=== PATIENT | female | born 1935 | race Caucasian/White ===

== ENCOUNTER 2020-04-08 09:31 | Day surgery (SDC) | payer OTHER ==
[2020-04-03 09:57] VITALS: BMI 30.9
[2020-04-08 12:11] VITALS: TEMP 98.1
[2020-04-08 12:53] VITALS: BP 140/69; PULSE 79
== END 2020-04-08 12:30 | disposition home or self-care (01) ==
LOC: FECT 09:31
PROVIDERS: ATTEND Psychiatry & Neurology Psychiatry
PROC: GZB4ZZZ Other Electroconvulsive Therapy (ICD-10-PCS; principal; 2020-04-08 10:30)
DX: F33.2 Major depressive disorder, recurrent severe without psychotic features (principal)
CPT/HCPCS: 90870; 94760; C9803; U0003

== ENCOUNTER 2020-04-12 06:48 | Day surgery (SDC) | payer OTHER ==
[2020-04-08 12:51] VITALS: BMI 30.7
[2020-04-12 10:33] VITALS: TEMP 97.9
[2020-04-12 10:34] VITALS: BP 135/71; PULSE 82
== END 2020-04-12 10:15 | disposition home or self-care (01) ==
LOC: FECT 06:48
PROVIDERS: ATTEND Psychiatry & Neurology Psychiatry
PROC: GZB4ZZZ Other Electroconvulsive Therapy (ICD-10-PCS; principal; 2020-04-12 07:30)
DX: F32.9 Major depressive disorder, single episode, unspecified (principal)
CPT/HCPCS: 90870; 94760; C9803; U0003

== ENCOUNTER → 2020-04-15 | Day surgery (SDC) | payer OTHER ==
[2020-04-12 10:50] VITALS: BMI 30.7
[~2020-04-15] MED LIST: ACETAMINOPHEN 325 MG TABLET (FP) PO PRN; LACTATED RINGERS SOLUTION 1,000 ML IV SCH
[2020-04-15 12:44] VITALS: TEMP 97.8
[2020-04-15 13:13] VITALS: BP 155/62; PULSE 105
== END | disposition home or self-care (01) ==
LOC: FECT 10:26
PROVIDERS: ATTEND Psychiatry & Neurology Psychiatry
PROC: GZB4ZZZ Other Electroconvulsive Therapy (ICD-10-PCS; principal; 2020-04-15 11:30)
DX: F32.9 Major depressive disorder, single episode, unspecified (principal)
CPT/HCPCS: 90870; 94760; C9803; U0003

== ENCOUNTER 2020-04-18 06:09 | Day surgery (SDC) | payer OTHER ==
[2020-04-12 12:07] VITALS: BMI 30.7
[2020-04-18 09:17] VITALS: BP 147/69; PULSE 85; TEMP 97.8
== END 2020-04-18 09:10 | disposition home or self-care (01) ==
LOC: FECT 06:09
PROVIDERS: ATTEND Psychiatry & Neurology Psychiatry
PROC: GZB4ZZZ Other Electroconvulsive Therapy (ICD-10-PCS; principal; 2020-04-18 08:00)
DX: F32.9 Major depressive disorder, single episode, unspecified (principal)
CPT/HCPCS: 90870; 94760; C9803; U0003

== ENCOUNTER 2020-04-22 10:06 | Day surgery (SDC) | payer OTHER ==
[2020-04-19 12:24] VITALS: BMI 30.7
[2020-04-22 11:46] VITALS: TEMP 97.5
[2020-04-22 12:53] VITALS: BP 136/63; PULSE 88
== END 2020-04-22 12:50 | disposition home or self-care (01) ==
LOC: FECT 10:06
PROVIDERS: ATTEND Psychiatry & Neurology Psychiatry
PROC: GZB4ZZZ Other Electroconvulsive Therapy (ICD-10-PCS; principal; 2020-04-22 11:00)
DX: F32.9 Major depressive disorder, single episode, unspecified (principal)
CPT/HCPCS: 90870; 94760; C9803; U0003

== ENCOUNTER 2020-04-25 08:17 | Day surgery (SDC) | payer OTHER ==
[2020-04-22 16:24] VITALS: BMI 30.7
[2020-04-25] MEDS ORDERED: PROPOFOL 20 ML ONE (11:17)
[2020-04-25] MEDS ORDERED: SUCCINYLCHOLINE CHLORIDE 200 MG/10 ML SYRINGE ONE (11:18)
[2020-04-25 11:50] VITALS: TEMP 98.6
[2020-04-25 12:56] VITALS: BP 144/74; PULSE 84
== END 2020-04-25 12:35 | disposition home or self-care (01) ==
LOC: FECT 08:17
PROVIDERS: ATTEND Psychiatry & Neurology Psychiatry
PROC: GZB4ZZZ Other Electroconvulsive Therapy (ICD-10-PCS; principal; 2020-04-25 10:00)
DX: F32.9 Major depressive disorder, single episode, unspecified (principal)
CPT/HCPCS: 90870; 94760; C9803; U0003

== ENCOUNTER 2020-04-29 09:21 | Day surgery (SDC) | payer OTHER ==
[2020-04-29 10:03] VITALS: BMI 30.7
[2020-04-29 13:18] VITALS: BP 133/63; PULSE 64; TEMP 98
== END 2020-04-29 12:30 | disposition home or self-care (01) ==
LOC: FECT 09:21
PROVIDERS: ATTEND Psychiatry & Neurology Psychiatry
PROC: GZB4ZZZ Other Electroconvulsive Therapy (ICD-10-PCS; principal; 2020-04-29 10:30)
DX: F32.9 Major depressive disorder, single episode, unspecified (principal)
CPT/HCPCS: 90870; 94760; C9803; U0003

== ENCOUNTER 2020-05-02 07:14 | Day surgery (SDC) | payer OTHER ==
[2020-04-29 14:13] VITALS: BMI 30.7
[2020-05-02] MEDS ORDERED: KETAMINE HCL 500 MG/10 ML VIAL ONE (08:19)
[2020-05-02 11:12] VITALS: TEMP 98.1
[2020-05-02 11:16] VITALS: BP 142/79; PULSE 80
== END 2020-05-02 09:50 | disposition home or self-care (01) ==
LOC: FECT 07:14
PROVIDERS: ATTEND Psychiatry & Neurology Psychiatry
PROC: GZB4ZZZ Other Electroconvulsive Therapy (ICD-10-PCS; principal; 2020-05-02 09:00)
DX: F32.9 Major depressive disorder, single episode, unspecified (principal)
CPT/HCPCS: 90870; 94760; C9803; U0003

== ENCOUNTER 2020-05-06 08:07 | Day surgery (SDC) | payer OTHER ==
[2020-05-02 15:14] VITALS: BMI 30.7
[2020-05-06] MEDS ORDERED: KETAMINE HCL 500 MG/10 ML VIAL ONE (09:56)
[2020-05-06 11:06] VITALS: TEMP 98
[2020-05-06 11:12] VITALS: BP 142/65; PULSE 84
== END 2020-05-06 11:25 | disposition home or self-care (01) ==
LOC: FECT 08:07
PROVIDERS: ATTEND Psychiatry & Neurology Psychiatry
PROC: GZB4ZZZ Other Electroconvulsive Therapy (ICD-10-PCS; principal; 2020-05-06 10:00)
DX: F32.9 Major depressive disorder, single episode, unspecified (principal)
CPT/HCPCS: 90870; 94760; C9803; U0003

== ENCOUNTER 2020-05-09 06:33 | Day surgery (SDC) | payer OTHER ==
[2020-05-07 08:32] VITALS: BMI 30.7
[2020-05-09] MEDS ORDERED: KETAMINE HCL 500 MG/10 ML VIAL ONE (07:42)
[2020-05-09 09:44] VITALS: TEMP 98
[2020-05-09 09:50] VITALS: BP 145/67; PULSE 88
== END 2020-05-09 09:55 | disposition home or self-care (01) ==
LOC: FECT 06:33
PROVIDERS: ATTEND Psychiatry & Neurology Psychiatry
PROC: GZB4ZZZ Other Electroconvulsive Therapy (ICD-10-PCS; principal; 2020-05-09 10:00)
DX: F32.9 Major depressive disorder, single episode, unspecified (principal)
CPT/HCPCS: 90870; 94760; C9803; U0003

== ENCOUNTER 2020-05-23 07:21 | Day surgery (SDC) | payer OTHER ==
[2020-05-08 17:09] VITALS: BMI 28.4
[2020-05-23] MEDS ORDERED: KETAMINE HCL 500 MG/10 ML VIAL ONE (08:43)
[2020-05-23 09:12] VITALS: TEMP 98.7
[2020-05-23 10:01] VITALS: BP 148/69; PULSE 88
== END 2020-05-23 10:00 | disposition home or self-care (01) ==
LOC: FECT 07:21
PROVIDERS: ATTEND Psychiatry & Neurology Psychiatry
PROC: GZB4ZZZ Other Electroconvulsive Therapy (ICD-10-PCS; principal; 2020-05-23 09:00)
DX: F32.9 Major depressive disorder, single episode, unspecified (principal)
CPT/HCPCS: 90870; 94760

== ENCOUNTER 2020-06-06 08:57 | Day surgery (SDC) | payer OTHER ==
[2020-05-28 08:32] VITALS: BMI 28.4
[2020-06-06 09:20] VITALS: BP 155/82; PULSE 89; TEMP 97
== END 2020-06-06 09:30 | disposition home or self-care (01) ==
LOC: FECT 08:57
PROVIDERS: ATTEND Psychiatry & Neurology Psychiatry
PROC: GZB4ZZZ Other Electroconvulsive Therapy (ICD-10-PCS; principal; 2020-06-06)
DX: Z53.8 Procedure and treatment not carried out for other reasons (principal)

== ENCOUNTER 2020-07-04 10:28 | Day surgery (SDC) | payer OTHER ==
[2020-06-28 12:07] VITALS: BMI 28.4
[2020-07-04] MEDS ORDERED: KETAMINE HCL 500 MG/10 ML VIAL ONE (11:54)
[2020-07-04 13:50] VITALS: TEMP 97.7
[2020-07-04 13:56] VITALS: BP 148/74; PULSE 86
== END 2020-07-04 13:50 | disposition home or self-care (01) ==
LOC: FECT 10:28
PROVIDERS: ATTEND Psychiatry & Neurology Psychiatry
PROC: GZB4ZZZ Other Electroconvulsive Therapy (ICD-10-PCS; principal; 2020-07-04 10:45)
DX: F32.9 Major depressive disorder, single episode, unspecified (principal)
CPT/HCPCS: 90870; 94760

== ENCOUNTER 2020-08-22 07:02 | Day surgery (SDC) | payer OTHER ==
[2020-08-22 07:53] VITALS: BMI 28.4
[2020-08-22] MEDS ORDERED: KETAMINE HCL 500 MG/10 ML VIAL ONE (08:46)
[2020-08-22 09:57] VITALS: TEMP 98.2
[2020-08-22 10:09] VITALS: BP 144/77; PULSE 79
== END 2020-08-22 10:10 | disposition home or self-care (01) ==
LOC: FECT 07:02
PROVIDERS: ATTEND Psychiatry & Neurology Psychiatry
PROC: GZB4ZZZ Other Electroconvulsive Therapy (ICD-10-PCS; principal; 2020-08-22 08:30)
DX: F32.9 Major depressive disorder, single episode, unspecified (principal)
CPT/HCPCS: 90870; 94760

== ENCOUNTER 2020-08-30 06:30 | Day surgery (SDC) | payer OTHER ==
[2020-08-29 07:45] VITALS: BMI 28.4
[2020-08-30] MEDS ORDERED: KETAMINE HCL 500 MG/10 ML VIAL ONE (08:17)
[2020-08-30 09:31] VITALS: TEMP 97.8
[2020-08-30 09:59] VITALS: BP 143/83; PULSE 87
== END 2020-08-30 10:00 | disposition home or self-care (01) ==
LOC: FECT 06:30
PROVIDERS: ATTEND Psychiatry & Neurology Psychiatry
PROC: GZB4ZZZ Other Electroconvulsive Therapy (ICD-10-PCS; principal; 2020-08-30 08:30)
DX: F32.9 Major depressive disorder, single episode, unspecified (principal)
CPT/HCPCS: 90870; 94760

== ENCOUNTER 2020-09-05 06:40 | Day surgery (SDC) | payer OTHER ==
[2020-08-30 12:18] VITALS: BMI 28.4
[2020-09-05] MEDS ORDERED: KETAMINE HCL 500 MG/10 ML VIAL ONE (08:13)
[2020-09-05 09:20] VITALS: TEMP 98
[2020-09-05 09:53] VITALS: BP 133/66; PULSE 86
== END 2020-09-05 09:45 | disposition home or self-care (01) ==
LOC: FECT 06:40
PROVIDERS: ATTEND Psychiatry & Neurology Psychiatry
PROC: GZB4ZZZ Other Electroconvulsive Therapy (ICD-10-PCS; principal; 2020-09-05 08:30)
DX: F32.9 Major depressive disorder, single episode, unspecified (principal)
CPT/HCPCS: 90870; 94760

== ENCOUNTER 2020-09-13 06:04 | Day surgery (SDC) | payer OTHER ==
[2020-09-06 16:32] VITALS: BMI 28.4
[2020-09-13] MEDS ORDERED: KETAMINE HCL 500 MG/10 ML VIAL ONE (07:16)
[2020-09-13 08:27] VITALS: TEMP 97
[2020-09-13 08:57] VITALS: BP 132/74; PULSE 76
== END 2020-09-13 08:59 | disposition home or self-care (01) ==
LOC: FECT 06:04
PROVIDERS: ATTEND Psychiatry & Neurology Psychiatry
PROC: GZB4ZZZ Other Electroconvulsive Therapy (ICD-10-PCS; principal; 2020-09-13 07:30)
DX: F25.9 Schizoaffective disorder, unspecified (principal)
CPT/HCPCS: 90870; 94760

== ENCOUNTER → 2020-09-20 | Day surgery (SDC) | payer OTHER ==
[~2020-09-20] MED LIST changes: -ACETAMINOPHEN 325 MG TABLET (FP) PO PRN; +KETAMINE HCL 500 MG/10 ML VIAL ONE; -LACTATED RINGERS SOLUTION 1,000 ML IV SCH
[2020-09-20 08:50] VITALS: BMI 29.1
[2020-09-20 09:53] VITALS: TEMP 97.8
[2020-09-20 10:49] VITALS: BP 165/75; PULSE 84
== END | disposition home or self-care (01) ==
LOC: FECT 08:18
PROVIDERS: ATTEND Psychiatry & Neurology Psychiatry
PROC: GZB4ZZZ Other Electroconvulsive Therapy (ICD-10-PCS; principal; 2020-09-20 08:30)
DX: F32.9 Major depressive disorder, single episode, unspecified (principal)
CPT/HCPCS: 90870; 94760

== ENCOUNTER 2020-09-27 09:18 | Day surgery (SDC) | payer OTHER ==
[2020-09-09 15:47] VITALS: BMI 28.4
[2020-09-27 10:12] VITALS: TEMP 97.8
[2020-09-27] MEDS ORDERED: KETAMINE HCL 500 MG/10 ML VIAL ONE (10:36)
[2020-09-27 12:43] LABS: BASO % 2.4 % (0-2.0); EOS % 1.8 % (0-4.5); HEMATOCRIT 41.6 % (32.4-45.2); HEMOGLOBIN 14.3 GM/dl (10.7-15.3); LYMPH % 20.8 % (8-40); MCH 33.2 pg (25.7-33.7); MCHC 34.5 g/dl (32.0-36.0); MEAN CELL VOLUME 96.2 fl (80-96); MEAN PLT VOLUME 9.4 fl (7.5-11.1); PLATELET COUNT 185 10^3/uL (134-434); RBC 4.32 M/mm3 (3.60-5.2); RDW 12.9 % (11.6-15.6); WHITE BLOOD COUNT 6.4 K/mm3 (4.0-10.8)
[2020-09-27 12:49] VITALS: BP 154/70; PULSE 77
[2020-09-27 12:57] LABS: ALBUMIN 3.5 g/dl (3.4-5.0); BILIRUBIN,TOTAL 0.8 mg/dl (0.2-1); CALCIUM 9.2 mg/dl (8.5-10); CREATININE 0.5 mg/dl (0.55-1.3); MAGNESIUM 1.9 mg/dL (1.8-2.4); TOT PROT 6.2 g/dl (6.4-8.2)
== END 2020-09-27 12:40 | disposition home or self-care (01) ==
LOC: FECT 09:18
PROVIDERS: ATTEND Psychiatry & Neurology Psychiatry
PROC: GZB4ZZZ Other Electroconvulsive Therapy (ICD-10-PCS; principal; 2020-09-27 10:00)
DX: F32.9 Major depressive disorder, single episode, unspecified (principal)
CPT/HCPCS: 36415; 80053; 83735; 85025; 90870; 93005; 94760

== ENCOUNTER 2020-10-04 07:01 | Day surgery (SDC) | payer OTHER ==
[2020-10-04 07:36] VITALS: BMI 28.3
[2020-10-04] MEDS ORDERED: PROPOFOL 20 ML ONE (08:53)
[2020-10-04] MEDS ORDERED: KETAMINE HCL 500 MG/10 ML VIAL ONE (08:54)
[2020-10-04 10:12] VITALS: TEMP 97.9
[2020-10-04 10:34] VITALS: BP 138/74; PULSE 67
== END 2020-10-04 10:34 | disposition home or self-care (01) ==
LOC: FECT 07:01
PROVIDERS: ATTEND Psychiatry & Neurology Psychiatry
PROC: GZB4ZZZ Other Electroconvulsive Therapy (ICD-10-PCS; principal; 2020-10-04 09:00)
DX: F32.9 Major depressive disorder, single episode, unspecified (principal)
CPT/HCPCS: 90870; 94760

== ENCOUNTER 2020-10-11 09:14 | Day surgery (SDC) | payer OTHER ==
[2020-10-08 13:02] VITALS: BMI 28.3
[2020-10-11 11:39] VITALS: PULSE 83; TEMP 98
[2020-10-11 12:39] VITALS: BP 139/64
== END 2020-10-11 11:45 | disposition home or self-care (01) ==
LOC: FECT 09:14
PROVIDERS: ATTEND Psychiatry & Neurology Psychiatry
PROC: GZB4ZZZ Other Electroconvulsive Therapy (ICD-10-PCS; principal; 2020-10-11 10:00)
DX: F32.9 Major depressive disorder, single episode, unspecified (principal)
CPT/HCPCS: 90870; 94760

== ENCOUNTER 2020-10-18 06:41 | Day surgery (SDC) | payer OTHER ==
[2020-10-11 16:10] VITALS: BMI 25.1
[2020-10-18] MEDS ORDERED: KETAMINE HCL 500 MG/10 ML VIAL ONE (09:01)
[2020-10-18 10:34] VITALS: TEMP 98
[2020-10-18 10:40] VITALS: BP 144/64; PULSE 78
== END 2020-10-18 10:40 | disposition home or self-care (01) ==
LOC: FECT 06:41
PROVIDERS: ATTEND Psychiatry & Neurology Psychiatry
PROC: GZB4ZZZ Other Electroconvulsive Therapy (ICD-10-PCS; principal; 2020-10-18 08:00)
DX: F32.9 Major depressive disorder, single episode, unspecified (principal)
CPT/HCPCS: 90870; 94760

== ENCOUNTER 2020-10-25 09:06 | Day surgery (SDC) | payer OTHER ==
[2020-10-22 07:56] VITALS: BMI 25.1
[2020-10-25 09:44] VITALS: TEMP 97.8
[2020-10-25] MEDS ORDERED: KETAMINE HCL 500 MG/10 ML VIAL ONE (11:08)
[2020-10-25 13:14] VITALS: BP 139/79; PULSE 76
== END 2020-10-25 12:40 | disposition home or self-care (01) ==
LOC: FECT 09:06
PROVIDERS: ATTEND Psychiatry & Neurology Psychiatry
PROC: GZB4ZZZ Other Electroconvulsive Therapy (ICD-10-PCS; principal; 2020-10-25 11:00)
DX: F33.2 Major depressive disorder, recurrent severe without psychotic features (principal)
CPT/HCPCS: 90870; 94760

== ENCOUNTER 2020-11-01 06:48 | Day surgery (SDC) | payer OTHER ==
[2020-10-29 12:40] VITALS: BMI 25.1
[2020-11-01] MEDS ORDERED: PROPOFOL 20 ML ONE ×2 (07:09)
[2020-11-01] MEDS ORDERED: KETAMINE HCL 200 MG/20 ML VIAL ONE (07:09)
[2020-11-01] MEDS ORDERED: SUCCINYLCHOLINE CHLORIDE 200 MG/10 ML SYRINGE ONE ×2 (07:09)
[2020-11-01] MEDS ORDERED: GLYCOPYRROLATE 0.2 MG/1 ML VIAL ONE (07:12)
[2020-11-01] MEDS ORDERED: LIDOCAINE HCL/PF 2% SDV 5ML VIAL ONE (07:12)
[2020-11-01] MEDS ORDERED: DEXMEDETOMIDINE HCL 200 MCG/2 ML IVPB ONE (08:55)
[2020-11-01 10:13] VITALS: TEMP 97.8
[2020-11-01 10:42] VITALS: BP 134/76; PULSE 90
== END 2020-11-01 09:35 | disposition home or self-care (01) ==
LOC: FECT 06:48
PROVIDERS: ATTEND Psychiatry & Neurology Psychiatry
PROC: GZB4ZZZ Other Electroconvulsive Therapy (ICD-10-PCS; principal; 2020-11-01 07:30)
DX: F32.9 Major depressive disorder, single episode, unspecified (principal)
CPT/HCPCS: 90870; 94760

== ENCOUNTER 2020-11-08 07:29 | Day surgery (SDC) | payer OTHER ==
[2020-11-04 11:15] VITALS: BMI 25.1
[2020-11-08] MEDS ORDERED: KETAMINE HCL 500 MG/10 ML VIAL ONE (09:44)
[2020-11-08 11:08] VITALS: BP 144/74; PULSE 95; TEMP 97
== END 2020-11-08 11:05 | disposition home or self-care (01) ==
LOC: FECT 07:29
PROVIDERS: ATTEND Psychiatry & Neurology Psychiatry
PROC: GZB4ZZZ Other Electroconvulsive Therapy (ICD-10-PCS; principal; 2020-11-08 09:30)
DX: F32.9 Major depressive disorder, single episode, unspecified (principal)
CPT/HCPCS: 90870; 94760

== ENCOUNTER 2020-11-14 07:39 | Day surgery (SDC) | payer OTHER ==
[2020-11-08 16:20] VITALS: BMI 25.1
[2020-11-14] MEDS ORDERED: KETAMINE HCL 500 MG/10 ML VIAL ONE (09:01)
[2020-11-14] MEDS ORDERED: PROPOFOL 20 ML ONE (09:23)
[2020-11-14 10:07] VITALS: TEMP 98.2
[2020-11-14 10:19] VITALS: BP 142/94; PULSE 80
== END 2020-11-14 10:25 | disposition home or self-care (01) ==
LOC: FECT 07:39
PROVIDERS: ATTEND Psychiatry & Neurology Psychiatry
PROC: GZB4ZZZ Other Electroconvulsive Therapy (ICD-10-PCS; principal; 2020-11-14 09:30)
DX: F32.9 Major depressive disorder, single episode, unspecified (principal)
CPT/HCPCS: 90870; 94760

== ENCOUNTER 2020-11-21 08:15 | Day surgery (SDC) | payer OTHER ==
[2020-11-19 07:28] VITALS: BMI 25.1
[2020-11-21 08:51] VITALS: TEMP 97.1
[2020-11-21] MEDS ORDERED: SUCCINYLCHOLINE CHLORIDE 200 MG/10 ML SYRINGE ONE (09:59)
[2020-11-21] MEDS ORDERED: PROPOFOL 20 ML ONE (09:59)
[2020-11-21] MEDS ORDERED: KETAMINE HCL 500 MG/10 ML VIAL ONE (10:00)
[2020-11-21 11:20] VITALS: BP 168/61; PULSE 71
== END 2020-11-21 11:25 | disposition home or self-care (01) ==
LOC: FECT 08:15
PROVIDERS: ATTEND Psychiatry & Neurology Psychiatry
PROC: GZB4ZZZ Other Electroconvulsive Therapy (ICD-10-PCS; principal; 2020-11-21 10:00)
DX: F32.9 Major depressive disorder, single episode, unspecified (principal)
CPT/HCPCS: 90870; 94760

== ENCOUNTER 2020-11-28 08:06 | Day surgery (SDC) | payer OTHER ==
[2020-11-26 08:34] VITALS: BMI 25.1
[2020-11-28] MEDS ORDERED: KETAMINE HCL 500 MG/10 ML VIAL ONE (08:43)
[2020-11-28 09:43] VITALS: TEMP 97.1
[2020-11-28 10:07] VITALS: BP 134/62; PULSE 89
== END 2020-11-28 10:10 | disposition home or self-care (01) ==
LOC: FECT 08:06
PROVIDERS: ATTEND Psychiatry & Neurology Psychiatry
PROC: GZB4ZZZ Other Electroconvulsive Therapy (ICD-10-PCS; principal; 2020-11-28 10:00)
DX: F32.9 Major depressive disorder, single episode, unspecified (principal)
CPT/HCPCS: 90870; 94760

== ENCOUNTER 2020-12-20 07:01 | Day surgery (SDC) | payer OTHER ==
[2020-12-02 10:27] VITALS: BMI 25.1
[2020-12-20 07:48] VITALS: TEMP 98.4
[2020-12-20] MEDS ORDERED: KETAMINE HCL 500 MG/10 ML VIAL ONE (08:43)
[2020-12-20 12:34] VITALS: BP 131/61; PULSE 86
== END 2020-12-20 10:50 | disposition home or self-care (01) ==
LOC: FECT 07:01
PROVIDERS: ATTEND Psychiatry & Neurology Psychiatry
PROC: GZB4ZZZ Other Electroconvulsive Therapy (ICD-10-PCS; principal; 2020-12-20 09:00)
DX: F32.9 Major depressive disorder, single episode, unspecified (principal)
CPT/HCPCS: 90870; 94760

== ENCOUNTER 2021-01-02 10:23 | Day surgery (SDC) | payer OTHER ==
[2020-12-31 12:55] VITALS: BMI 25.1
[2021-01-02 11:07] VITALS: TEMP 97.7
[2021-01-02] MEDS ORDERED: KETAMINE HCL 500 MG/10 ML VIAL ONE (11:39)
[2021-01-02 13:01] VITALS: BP 135/66; PULSE 77
== END 2021-01-02 13:05 | disposition home or self-care (01) ==
LOC: FECT 10:23
PROVIDERS: ATTEND Psychiatry & Neurology Psychiatry
PROC: GZB4ZZZ Other Electroconvulsive Therapy (ICD-10-PCS; principal; 2021-01-02 11:00)
DX: F32.9 Major depressive disorder, single episode, unspecified (principal)
CPT/HCPCS: 90870; 94760

== ENCOUNTER 2021-01-16 07:53 | Day surgery (SDC) | payer OTHER ==
[2021-01-16 08:35] VITALS: BMI 25.1
[2021-01-16] MEDS ORDERED: KETAMINE HCL 500 MG/10 ML VIAL ONE (09:20)
[2021-01-16 10:36] VITALS: TEMP 97.8
[2021-01-16 10:43] VITALS: BP 140/70; PULSE 87
== END 2021-01-16 10:45 | disposition home or self-care (01) ==
LOC: FECT 07:53
PROVIDERS: ATTEND Psychiatry & Neurology Psychiatry
PROC: GZB4ZZZ Other Electroconvulsive Therapy (ICD-10-PCS; principal; 2021-01-16 09:30)
DX: F32.9 Major depressive disorder, single episode, unspecified (principal)
CPT/HCPCS: 90870; 94760

== ENCOUNTER 2021-01-30 09:28 | Day surgery (SDC) | payer OTHER ==
[2021-01-29 08:46] VITALS: BMI 25.1
[2021-01-30] MEDS ORDERED: KETAMINE HCL 500 MG/10 ML VIAL ONE (11:23)
[2021-01-30 12:02] VITALS: TEMP 97.3
[2021-01-30 12:58] VITALS: BP 132/80; PULSE 76
== END 2021-01-30 12:55 | disposition home or self-care (01) ==
LOC: FECT 09:28
PROVIDERS: ATTEND Psychiatry & Neurology Psychiatry
PROC: GZB4ZZZ Other Electroconvulsive Therapy (ICD-10-PCS; principal; 2021-01-30 11:00)
DX: F25.9 Schizoaffective disorder, unspecified (principal)
CPT/HCPCS: 90870; 94760

== ENCOUNTER 2021-02-17 11:40 | Day surgery (SDC) | payer OTHER ==
[2021-02-17 12:14] VITALS: BMI 25.6
[2021-02-17] MEDS ORDERED: KETAMINE HCL 500 MG/10 ML VIAL ONE (12:55)
[2021-02-17 15:45] VITALS: TEMP 98
[2021-02-17 15:47] VITALS: BP 158/64; PULSE 80
== END 2021-02-17 14:15 | disposition home or self-care (01) ==
LOC: FECT 11:40
PROVIDERS: ATTEND Psychiatry & Neurology Psychiatry
PROC: GZB4ZZZ Other Electroconvulsive Therapy (ICD-10-PCS; principal; 2021-02-17 12:30)
DX: F25.9 Schizoaffective disorder, unspecified (principal)
CPT/HCPCS: 90870; 94760

== ENCOUNTER 2021-03-06 09:05 | Day surgery (SDC) | payer OTHER ==
[2021-02-20 11:16] VITALS: BMI 25.6
[2021-03-06] MEDS ORDERED: KETAMINE HCL 500 MG/10 ML VIAL ONE (10:10)
[2021-03-06 10:47] VITALS: TEMP 98.6
[2021-03-06 11:57] VITALS: BP 141/61; PULSE 83
== END 2021-03-06 11:40 | disposition home or self-care (01) ==
LOC: FECT 09:05
PROVIDERS: ATTEND Psychiatry & Neurology Psychiatry
PROC: GZB4ZZZ Other Electroconvulsive Therapy (ICD-10-PCS; principal; 2021-03-06 10:00)
DX: F25.9 Schizoaffective disorder, unspecified (principal)
CPT/HCPCS: 90870; 94760

== ENCOUNTER 2021-03-20 10:13 | Day surgery (SDC) | payer OTHER ==
[2021-03-14 08:22] VITALS: BMI 25.6
[2021-03-20] MEDS ORDERED: KETAMINE HCL 500 MG/10 ML VIAL ONE (11:22)
[2021-03-20 11:36] LABS: ALBUMIN 3.6 g/dl (3.4-5.0); BILIRUBIN,TOTAL 1.2 mg/dl (0.2-1); CALCIUM 9.6 mg/dl (8.5-10); CREATININE 0.6 mg/dl (0.55-1.3); TOT PROT 6.7 g/dl (6.4-8.2)
[2021-03-20 12:17] VITALS: TEMP 97.8
[2021-03-20 12:29] LABS: HEMATOCRIT 41.1 % (32.4-45.2); MCH 32.8 pg (25.7-33.7); MCHC 34.1 g/dl (32.0-36.0); MEAN CELL VOLUME 96.1 fl (80-96); MEAN PLT VOLUME 9.2 fl (7.5-11.1); PLATELET COUNT 198 10^3/uL (134-434); RBC 4.28 M/mm3 (3.60-5.2); RDW 13.9 % (11.6-15.6); WHITE BLOOD COUNT 6.6 K/mm3 (4.0-10.0)
[2021-03-20 12:50] VITALS: BP 124/67; PULSE 84
== END 2021-03-20 13:05 | disposition home or self-care (01) ==
LOC: FECT 10:13
PROVIDERS: ATTEND Psychiatry & Neurology Psychiatry
PROC: GZB4ZZZ Other Electroconvulsive Therapy (ICD-10-PCS; principal; 2021-03-20 10:30)
DX: F25.9 Schizoaffective disorder, unspecified (principal)
CPT/HCPCS: 36415; 80053; 85027; 90870; 93005; 93010; 94760

== ENCOUNTER 2021-04-03 10:13 | Day surgery (SDC) | payer OTHER ==
[2021-04-01 07:58] VITALS: BMI 25.6
[2021-04-03] MEDS ORDERED: KETAMINE HCL 500 MG/10 ML VIAL ONE (11:54)
[2021-04-03 12:20] VITALS: TEMP 98.6
[2021-04-03 12:43] VITALS: BP 140/84; PULSE 87
== END 2021-04-03 13:00 | disposition home or self-care (01) ==
LOC: FECT 10:13
PROVIDERS: ATTEND Psychiatry & Neurology Psychiatry
PROC: GZB4ZZZ Other Electroconvulsive Therapy (ICD-10-PCS; principal; 2021-04-03 11:30)
DX: F25.9 Schizoaffective disorder, unspecified (principal)
CPT/HCPCS: 90870; 94760

== ENCOUNTER 2021-04-17 09:30 | Day surgery (SDC) | payer OTHER ==
[2021-04-11 17:50] VITALS: BMI 25.6
[2021-04-17] MEDS ORDERED: PROPOFOL 20 ML ONE (11:33)
[2021-04-17] MEDS ORDERED: ACETAMINOPHEN 325 MG TABLET (FP) PO PRN (12:02)
[2021-04-17 12:19] VITALS: TEMP 97.3
[2021-04-17 13:14] VITALS: BP 151/76; PULSE 88
== END 2021-04-17 13:00 | disposition home or self-care (01) ==
LOC: FECT 09:30
PROVIDERS: ATTEND Psychiatry & Neurology Psychiatry
PROC: GZB4ZZZ Other Electroconvulsive Therapy (ICD-10-PCS; principal; 2021-04-17 11:00)
DX: F25.9 Schizoaffective disorder, unspecified (principal)
CPT/HCPCS: 90870; 94760

== ENCOUNTER 2021-05-01 10:02 | Day surgery (SDC) | payer OTHER ==
[2021-05-01 10:36] VITALS: BMI 25.9
[2021-05-01] MEDS ORDERED: KETAMINE HCL 500 MG/10 ML VIAL ONE (11:26)
[2021-05-01 12:51] VITALS: TEMP 98.4
[2021-05-01 12:54] VITALS: BP 146/69; PULSE 89
== END 2021-05-01 12:54 | disposition home or self-care (01) ==
LOC: FECT 10:02
PROVIDERS: ATTEND Psychiatry & Neurology Psychiatry
PROC: GZB4ZZZ Other Electroconvulsive Therapy (ICD-10-PCS; principal; 2021-05-01 11:32)
DX: F20.9 Schizophrenia, unspecified (principal)
CPT/HCPCS: 90870; 94760

== ENCOUNTER 2021-05-15 07:15 | Day surgery (SDC) | payer OTHER ==
[2021-05-13 09:52] VITALS: BMI 25.9
[2021-05-15 09:16] VITALS: TEMP 98.4
[2021-05-15 10:20] VITALS: BP 139/60; PULSE 76
== END 2021-05-15 10:10 | disposition home or self-care (01) ==
LOC: FECT 07:15
PROVIDERS: ATTEND Psychiatry & Neurology Psychiatry
PROC: GZB4ZZZ Other Electroconvulsive Therapy (ICD-10-PCS; principal; 2021-05-15 08:51)
DX: F25.9 Schizoaffective disorder, unspecified (principal)
CPT/HCPCS: 90870; 94760

== ENCOUNTER 2021-05-29 08:30 | Day surgery (SDC) | payer OTHER ==
[2021-05-26 07:35] VITALS: BMI 25.9
[2021-05-29] MEDS ORDERED: KETAMINE HCL 500 MG/10 ML VIAL ONE (09:33)
[2021-05-29 11:52] VITALS: BP 142/58; PULSE 75; TEMP 97.8
== END 2021-05-29 11:10 | disposition home or self-care (01) ==
LOC: FECT 08:30
PROVIDERS: ATTEND Psychiatry & Neurology Psychiatry
PROC: GZB4ZZZ Other Electroconvulsive Therapy (ICD-10-PCS; principal; 2021-05-29 09:51)
DX: F20.9 Schizophrenia, unspecified (principal)
CPT/HCPCS: 90870; 94760

== ENCOUNTER 2021-06-12 09:29 | Day surgery (SDC) | payer OTHER ==
[2021-06-05 14:46] VITALS: BMI 25.9
[2021-06-12] MEDS ORDERED: KETAMINE HCL 500 MG/10 ML VIAL ONE (10:59)
[2021-06-12 12:18] VITALS: TEMP 97.3
[2021-06-12 12:40] VITALS: BP 144/61; PULSE 86
== END 2021-06-12 12:40 | disposition home or self-care (01) ==
LOC: FECT 09:29
PROVIDERS: ATTEND Psychiatry & Neurology Psychiatry
PROC: GZB4ZZZ Other Electroconvulsive Therapy (ICD-10-PCS; principal; 2021-06-12 11:20)
DX: F25.9 Schizoaffective disorder, unspecified (principal)
CPT/HCPCS: 90870; 94760

== ENCOUNTER 2021-07-31 08:36 | Day surgery (SDC) | payer OTHER ==
[2021-06-17 07:53] VITALS: BMI 25.9
[2021-07-31 10:48] VITALS: TEMP 98
[2021-07-31 11:06] VITALS: BP 149/58; PULSE 77
== END 2021-07-31 11:10 | disposition home or self-care (01) ==
LOC: FECT 08:36
PROVIDERS: ATTEND Psychiatry & Neurology Psychiatry
PROC: GZB4ZZZ Other Electroconvulsive Therapy (ICD-10-PCS; principal; 2021-07-31 09:54)
DX: F25.9 Schizoaffective disorder, unspecified (principal)
CPT/HCPCS: 90870; 94760

== ENCOUNTER 2021-08-15 07:54 | Day surgery (SDC) | payer OTHER ==
[2021-08-05 11:34] VITALS: BMI 25.9
[2021-08-15] MEDS ORDERED: KETAMINE HCL 500 MG/10 ML VIAL ONE (08:48)
[2021-08-15 10:00] VITALS: TEMP 98.2
[2021-08-15 10:12] VITALS: BP 159/66; PULSE 76
== END 2021-08-15 10:24 | disposition home or self-care (01) ==
LOC: FECT 07:54
PROVIDERS: ATTEND Psychiatry & Neurology Psychiatry
PROC: GZB4ZZZ Other Electroconvulsive Therapy (ICD-10-PCS; principal; 2021-08-15 09:05)
DX: F25.1 Schizoaffective disorder, depressive type (principal)
CPT/HCPCS: 90870; 94760

== ENCOUNTER 2021-09-05 07:04 | Day surgery (SDC) | payer OTHER ==
[2021-09-02 14:09] VITALS: BMI 25.9
[2021-09-05] MEDS ORDERED: KETAMINE HCL 500 MG/10 ML VIAL ONE (08:27)
[2021-09-05 10:09] VITALS: PULSE 85; TEMP 98.7
[2021-09-05 10:27] VITALS: BP 149/68
[2021-09-05 12:29] VITALS: RESP 17
== END 2021-09-05 10:05 | disposition home or self-care (01) ==
LOC: FECT 07:04
PROVIDERS: ATTEND Psychiatry & Neurology Psychiatry
PROC: GZB4ZZZ Other Electroconvulsive Therapy (ICD-10-PCS; principal; 2021-09-05 08:38)
DX: F25.1 Schizoaffective disorder, depressive type (principal)
CPT/HCPCS: 90870; 94760

== ENCOUNTER 2021-09-18 08:24 | Day surgery (SDC) | payer OTHER ==
[2021-09-15 12:28] VITALS: BMI 25.9
[2021-09-18] MEDS ORDERED: KETAMINE HCL 500 MG/10 ML VIAL ONE (09:50)
[2021-09-18 11:09] VITALS: RESP 18; TEMP 97.2
[2021-09-18 11:30] VITALS: BP 160/65; PULSE 82
== END 2021-09-18 11:38 | disposition home or self-care (01) ==
LOC: FECT 08:24
PROVIDERS: ATTEND Psychiatry & Neurology Psychiatry
PROC: GZB4ZZZ Other Electroconvulsive Therapy (ICD-10-PCS; principal; 2021-09-18 10:11)
DX: F25.1 Schizoaffective disorder, depressive type (principal)
CPT/HCPCS: 90870; 94760

== ENCOUNTER 2021-10-02 08:18 | Day surgery (SDC) | payer OTHER ==
[2021-09-23 13:57] VITALS: BMI 25.9
[2021-10-02] MEDS ORDERED: KETAMINE HCL 500 MG/10 ML VIAL ONE (10:15)
[2021-10-02 12:16] VITALS: BP 142/67; PULSE 82; RESP 20; TEMP 98.1
== END 2021-10-02 11:55 | disposition home or self-care (01) ==
LOC: FECT 08:18
PROVIDERS: ATTEND Psychiatry & Neurology Psychiatry
PROC: GZB4ZZZ Other Electroconvulsive Therapy (ICD-10-PCS; principal; 2021-10-02 10:36)
DX: F25.9 Schizoaffective disorder, unspecified (principal)
CPT/HCPCS: 90870; 94760

== ENCOUNTER 2021-10-23 09:01 | Day surgery (SDC) | payer OTHER ==
[2021-10-13 14:26] VITALS: BMI 25.9
[2021-10-23 11:34] VITALS: TEMP 97.5
[2021-10-23 11:51] VITALS: BP 160/60; PULSE 92; RESP 18
== END 2021-10-23 11:57 | disposition home or self-care (01) ==
LOC: FECT 09:01
PROVIDERS: ATTEND Psychiatry & Neurology Psychiatry
PROC: GZB4ZZZ Other Electroconvulsive Therapy (ICD-10-PCS; principal; 2021-10-23 10:51)
DX: F20.9 Schizophrenia, unspecified (principal)
CPT/HCPCS: 90870; 94760

== ENCOUNTER 2021-11-03 07:42 | Day surgery (SDC) | payer OTHER ==
[2021-11-03 08:26] VITALS: BMI 25.9
[2021-11-03] MEDS ORDERED: KETAMINE HCL 500 MG/10 ML VIAL ONE (09:24)
[2021-11-03 10:00] VITALS: TEMP 98.6
[2021-11-03 13:43] VITALS: RESP 18
[2021-11-03 13:44] VITALS: BP 141/78; PULSE 86
== END 2021-11-03 11:30 | disposition home or self-care (01) ==
LOC: FECT 07:42
PROVIDERS: ATTEND Psychiatry & Neurology Psychiatry
PROC: GZB4ZZZ Other Electroconvulsive Therapy (ICD-10-PCS; principal; 2021-11-03 09:40)
DX: F25.1 Schizoaffective disorder, depressive type (principal)
CPT/HCPCS: 90870; 94760

== ENCOUNTER 2021-11-20 08:20 | Day surgery (SDC) | payer OTHER ==
[2021-11-20 09:14] VITALS: BMI 25.9
[2021-11-20 11:32] VITALS: RESP 18; TEMP 98
[2021-11-20 11:46] VITALS: BP 139/60; PULSE 71
== END 2021-11-20 11:50 | disposition home or self-care (01) ==
LOC: FECT 08:20
PROVIDERS: ATTEND Psychiatry & Neurology Psychiatry
PROC: GZB4ZZZ Other Electroconvulsive Therapy (ICD-10-PCS; principal; 2021-11-20 10:26)
DX: F20.9 Schizophrenia, unspecified (principal)
CPT/HCPCS: 90870; 94760

== ENCOUNTER 2021-12-04 09:19 | Day surgery (SDC) | payer OTHER ==
[2021-11-26 08:48] VITALS: BMI 25.9
[2021-12-04] MEDS ORDERED: KETAMINE HCL 500 MG/10 ML VIAL ONE (10:22)
[2021-12-04 11:28] VITALS: RESP 18; TEMP 97.4
[2021-12-04 12:01] VITALS: BP 150/60; PULSE 80
== END 2021-12-04 12:00 | disposition home or self-care (01) ==
LOC: FECT 09:19
PROVIDERS: ATTEND Psychiatry & Neurology Psychiatry
PROC: GZB4ZZZ Other Electroconvulsive Therapy (ICD-10-PCS; principal; 2021-12-04 10:38)
DX: F25.9 Schizoaffective disorder, unspecified (principal)
CPT/HCPCS: 90870; 94760

== ENCOUNTER 2021-12-18 09:01 | Day surgery (SDC) | payer OTHER ==
[2021-12-18 09:40] VITALS: BMI 25.9
[2021-12-18 10:00] VITALS: TEMP 97.8
[2021-12-18] MEDS ORDERED: KETAMINE HCL 500 MG/10 ML VIAL ONE (10:19)
[2021-12-18 12:04] VITALS: BP 126/57; PULSE 89; RESP 18
== END 2021-12-18 11:40 | disposition home or self-care (01) ==
LOC: FECT 09:01
PROVIDERS: ATTEND Psychiatry & Neurology Psychiatry
PROC: GZB4ZZZ Other Electroconvulsive Therapy (ICD-10-PCS; principal; 2021-12-18 10:21)
DX: F25.9 Schizoaffective disorder, unspecified (principal)
CPT/HCPCS: 90870; 94760

== ENCOUNTER 2022-01-01 10:04 | Day surgery (SDC) | payer OTHER ==
[2021-12-30 14:56] VITALS: BMI 25.9
[2022-01-01 10:36] VITALS: TEMP 98
[2022-01-01] MEDS ORDERED: KETAMINE HCL 500 MG/10 ML VIAL ONE (12:37)
[2022-01-01 14:12] VITALS: BP 140/66; PULSE 77; RESP 18
== END 2022-01-01 14:10 | disposition home or self-care (01) ==
LOC: FECT 10:04
PROVIDERS: ATTEND Psychiatry & Neurology Psychiatry
PROC: GZB4ZZZ Other Electroconvulsive Therapy (ICD-10-PCS; principal; 2022-01-01 12:49)
DX: F32.A Depression, unspecified (principal)
CPT/HCPCS: 90870; 94760

== ENCOUNTER 2022-01-19 08:08 | Day surgery (SDC) | payer OTHER ==
[2022-01-13 14:59] VITALS: BMI 25.9
[2022-01-19] MEDS ORDERED: KETAMINE HCL 500 MG/10 ML VIAL ONE (09:23)
[2022-01-19 10:48] VITALS: BP 122/55; PULSE 70; TEMP 97.8
[2022-01-19 10:54] VITALS: RESP 18
== END 2022-01-19 11:16 | disposition home or self-care (01) ==
LOC: FECT 08:08
PROVIDERS: ATTEND Psychiatry & Neurology Psychiatry
PROC: GZB4ZZZ Other Electroconvulsive Therapy (ICD-10-PCS; principal; 2022-01-19 09:33)
DX: F25.1 Schizoaffective disorder, depressive type (principal)
CPT/HCPCS: 90870; 94760

== ENCOUNTER → 2022-02-17 | Day surgery (SDC) | payer OTHER ==
[2022-02-06 12:25] VITALS: BMI 25.9
[~2022-02-17] MED LIST changes: +LACTATED RINGERS SOLUTION 1,000 ML IV SCH; +ONDANSETRON 4 MG/2 ML VIAL IVPUSH PRN; +PROPOFOL 20 ML ONE; +SUCCINYLCHOLINE CHLORIDE 200 MG/10 ML SYRINGE ONE
[2022-02-17 10:13] VITALS: TEMP 97.7
[2022-02-17 11:33] VITALS: RESP 18
[2022-02-17 11:34] VITALS: BP 141/59; PULSE 88
== END | disposition home or self-care (01) ==
LOC: FECT 07:27
PROVIDERS: ATTEND Psychiatry & Neurology Psychiatry
PROC: GZB4ZZZ Other Electroconvulsive Therapy (ICD-10-PCS; principal; 2022-02-17 09:47)
DX: F20.9 Schizophrenia, unspecified (principal)
CPT/HCPCS: 90870; 94760

== ENCOUNTER 2022-03-03 07:28 | Day surgery (SDC) | payer OTHER ==
[2022-02-27 14:33] VITALS: BMI 25.9
[~2022-03-03 07:28] MED LIST changes: +ACETAMINOPHEN 325 MG TABLET (FP) PO PRN; -KETAMINE HCL 500 MG/10 ML VIAL ONE; -LACTATED RINGERS SOLUTION 1,000 ML IV SCH; +PROMETHAZINE HCL 25 MG/1 ML VIAL IVPUSH PRN; -PROPOFOL 20 ML ONE; -SUCCINYLCHOLINE CHLORIDE 200 MG/10 ML SYRINGE ONE
[2022-03-03] MEDS ORDERED: LACTATED RINGERS SOLUTION 1,000 ML IV SCH (07:30)
[2022-03-03] MEDS ORDERED: KETAMINE HCL 500 MG/10 ML VIAL ONE (09:41)
[2022-03-03] MEDS ORDERED: LIDOCAINE HCL/PF 2% SDV 5ML VIAL ONE (09:58)
[2022-03-03 10:39] VITALS: RESP 18; TEMP 97.6
[2022-03-03 11:29] VITALS: BP 140/61; PULSE 86
== END 2022-03-03 11:40 | disposition home or self-care (01) ==
LOC: FECT 07:28
PROVIDERS: ATTEND Psychiatry & Neurology Psychiatry
PROC: GZB4ZZZ Other Electroconvulsive Therapy (ICD-10-PCS; principal; 2022-03-03 10:01)
DX: F25.9 Schizoaffective disorder, unspecified (principal)
CPT/HCPCS: 90870; 94760

== ENCOUNTER 2022-03-19 09:40 | Day surgery (SDC) | payer OTHER ==
[2022-03-19 10:31] VITALS: RESP 18; BMI 25.9
[2022-03-19 12:41] VITALS: TEMP 98.6
[2022-03-19 12:48] VITALS: BP 130/66; PULSE 91
== END 2022-03-19 12:55 | disposition home or self-care (01) ==
LOC: FECT 09:40
PROVIDERS: ATTEND Psychiatry & Neurology Psychiatry
PROC: GZB4ZZZ Other Electroconvulsive Therapy (ICD-10-PCS; principal; 2022-03-19 11:33)
DX: F25.9 Schizoaffective disorder, unspecified (principal)
CPT/HCPCS: 90870; 93005; 94760

== ENCOUNTER 2022-04-02 08:10 | Day surgery (SDC) | payer OTHER ==
[2022-04-02 08:24] VITALS: BMI 25.9
[2022-04-02] MEDS ORDERED: KETAMINE HCL 500 MG/10 ML VIAL ONE (09:16)
[2022-04-02 10:11] VITALS: RESP 18
[2022-04-02 11:01] VITALS: BP 121/79; PULSE 79; TEMP 97.2
== END 2022-04-02 10:50 | disposition home or self-care (01) ==
LOC: FECT 08:10
PROVIDERS: ATTEND Psychiatry & Neurology Psychiatry
PROC: GZB4ZZZ Other Electroconvulsive Therapy (ICD-10-PCS; principal; 2022-04-02 09:32)
DX: F25.9 Schizoaffective disorder, unspecified (principal)
CPT/HCPCS: 90870; 94760

== ENCOUNTER 2022-04-23 10:18 | Day surgery (SDC) | payer OTHER ==
[2022-04-08 17:58] VITALS: BMI 25.9
[2022-04-23 12:51] VITALS: RESP 16; TEMP 98.4
[2022-04-23] MEDS ORDERED: ONDANSETRON 4 MG/2 ML VIAL IVPUSH PRN (13:23)
[2022-04-23] MEDS ORDERED: LACTATED RINGERS SOLUTION 1,000 ML IV SCH (13:30)
[2022-04-23 13:41] VITALS: BP 132/47; PULSE 82
== END 2022-04-23 13:15 | disposition home or self-care (01) ==
LOC: FECT 10:18
PROVIDERS: ATTEND Psychiatry & Neurology Psychiatry
PROC: GZB4ZZZ Other Electroconvulsive Therapy (ICD-10-PCS; principal; 2022-04-23 11:41)
DX: F32.A Depression, unspecified (principal)
CPT/HCPCS: 90870; 94760

== ENCOUNTER 2022-05-07 08:36 | Day surgery (SDC) | payer OTHER ==
[2022-04-28 10:02] VITALS: BMI 25.9
[~2022-05-07 08:36] MED LIST changes: -ACETAMINOPHEN 325 MG TABLET (FP) PO PRN; +LACTATED RINGERS SOLUTION 1,000 ML IV SCH; -ONDANSETRON 4 MG/2 ML VIAL IVPUSH PRN; -PROMETHAZINE HCL 25 MG/1 ML VIAL IVPUSH PRN
[2022-05-07] MEDS ORDERED: KETAMINE HCL 500 MG/10 ML VIAL ONE (10:28)
[2022-05-07] MEDS ORDERED: SUCCINYLCHOLINE CHLORIDE 200 MG/10 ML SYRINGE ONE (10:35)
[2022-05-07 12:21] VITALS: TEMP 99.5
[2022-05-07 12:24] VITALS: BP 151/69; PULSE 83; RESP 16
== END 2022-05-07 12:15 | disposition home or self-care (01) ==
LOC: FECT 08:36
PROVIDERS: ATTEND Psychiatry & Neurology Psychiatry
PROC: GZB4ZZZ Other Electroconvulsive Therapy (ICD-10-PCS; principal; 2022-05-07 10:49)
DX: F20.9 Schizophrenia, unspecified (principal)
CPT/HCPCS: 90870; 94760

== ENCOUNTER 2022-05-21 09:12 | Day surgery (SDC) | payer OTHER ==
[2022-05-15 17:45] VITALS: BMI 25.9
[2022-05-21 09:42] VITALS: RESP 18
[2022-05-21] MEDS ORDERED: KETAMINE HCL 500 MG/10 ML VIAL ONE (10:19)
[2022-05-21 11:30] VITALS: TEMP 97.8
[2022-05-21 11:42] VITALS: BP 143/68; PULSE 77
== END 2022-05-21 11:45 | disposition home or self-care (01) ==
LOC: FECT 09:12
PROVIDERS: ATTEND Psychiatry & Neurology Psychiatry
PROC: GZB4ZZZ Other Electroconvulsive Therapy (ICD-10-PCS; principal; 2022-05-21 10:29)
DX: F25.9 Schizoaffective disorder, unspecified (principal)
CPT/HCPCS: 90870; 94760

== ENCOUNTER 2022-06-18 07:42 | Day surgery (SDC) | payer OTHER ==
[2022-06-18 08:16] VITALS: BMI 25.9
[2022-06-18] MEDS ORDERED: KETAMINE HCL 500 MG/10 ML VIAL ONE (08:52)
[2022-06-18] MEDS ORDERED: ONDANSETRON 4 MG/2 ML VIAL ONE (09:13)
[2022-06-18] MEDS ORDERED: SUCCINYLCHOLINE CHLORIDE 200 MG/10 ML SYRINGE ONE (09:38)
[2022-06-18] MEDS ORDERED: LIDOCAINE HCL/PF 2% SDV 5ML VIAL ONE (09:40)
[2022-06-18 10:31] VITALS: RESP 18
[2022-06-18 10:58] VITALS: BP 156/66; PULSE 77; TEMP 97.8
== END 2022-06-18 10:45 | disposition home or self-care (01) ==
LOC: FECT 07:42
PROVIDERS: ATTEND Psychiatry & Neurology Psychiatry
PROC: GZB4ZZZ Other Electroconvulsive Therapy (ICD-10-PCS; principal; 2022-06-18 09:17)
DX: F25.1 Schizoaffective disorder, depressive type (principal)
CPT/HCPCS: 90870; 94760

== ENCOUNTER 2022-07-02 09:49 | Day surgery (SDC) | payer OTHER ==
[2022-06-25 09:45] VITALS: BMI 25.9
[2022-07-02] MEDS ORDERED: KETAMINE HCL 500 MG/10 ML VIAL ONE (12:01)
[2022-07-02 13:33] VITALS: RESP 18; TEMP 98.7
[2022-07-02 13:34] VITALS: BP 146/69; PULSE 79
== END 2022-07-02 13:30 | disposition home or self-care (01) ==
LOC: FECT 09:49
PROVIDERS: ATTEND Psychiatry & Neurology Psychiatry
PROC: GZB4ZZZ Other Electroconvulsive Therapy (ICD-10-PCS; principal; 2022-07-02 12:14)
DX: F25.9 Schizoaffective disorder, unspecified (principal)
CPT/HCPCS: 90870; 94760

== ENCOUNTER 2022-07-16 09:46 | Day surgery (SDC) | payer OTHER ==
[2022-07-16 10:12] VITALS: BMI 25.9
[2022-07-16] MEDS ORDERED: PROMETHAZINE HCL 25 MG/1 ML VIAL IVPB PRN (10:37)
[2022-07-16] MEDS ORDERED: ACETAMINOPHEN 325 MG TABLET (FP) PO PRN (10:37)
[2022-07-16] MEDS ORDERED: LACTATED RINGERS SOLUTION 1,000 ML IV SCH (10:45)
[2022-07-16] MEDS ORDERED: KETAMINE HCL 500 MG/10 ML VIAL ONE (10:59)
[2022-07-16] MEDS ORDERED: hydrALAZINE HCL 20 MG/ML VIAL ONE (11:23)
[2022-07-16] MEDS ORDERED: METOPROLOL TARTRATE 5 MG/5 ML VIAL ONE (11:28)
[2022-07-16 13:13] VITALS: TEMP 98
[2022-07-16 13:14] VITALS: BP 121/61; PULSE 84; RESP 18
== END 2022-07-16 13:25 | disposition home or self-care (01) ==
LOC: FECT 09:46
PROVIDERS: ATTEND Psychiatry & Neurology Psychiatry
PROC: GZB4ZZZ Other Electroconvulsive Therapy (ICD-10-PCS; principal; 2022-07-16 11:10)
DX: F25.9 Schizoaffective disorder, unspecified (principal)
CPT/HCPCS: 90870; 94760

== ENCOUNTER 2022-07-30 08:41 | Day surgery (SDC) | payer OTHER ==
[2022-07-24 08:06] VITALS: BMI 25.9
[2022-07-30 09:03] VITALS: RESP 18
[2022-07-30] MEDS ORDERED: KETAMINE HCL 500 MG/10 ML VIAL ONE (10:01)
[2022-07-30] MEDS ORDERED: LABETALOL HCL 5 MG/1 ML (100MG/20 ML VIAL) ONE (10:25)
[2022-07-30 11:00] VITALS: TEMP 97.2
[2022-07-30 11:13] VITALS: BP 170/70; PULSE 72
== END 2022-07-30 11:23 | disposition home or self-care (01) ==
LOC: FECT 08:41
PROVIDERS: ATTEND Psychiatry & Neurology Psychiatry
PROC: GZB4ZZZ Other Electroconvulsive Therapy (ICD-10-PCS; principal; 2022-07-30 10:17)
DX: F25.9 Schizoaffective disorder, unspecified (principal)
CPT/HCPCS: 90870; 94760

== ENCOUNTER 2022-08-28 10:03 | Day surgery (SDC) | payer OTHER ==
[2022-08-28] MEDS ORDERED: SUCCINYLCHOLINE CHLORIDE 200 MG/10 ML SYRINGE ONE (10:49)
[2022-08-28] MEDS ORDERED: PROPOFOL 20 ML ONE (10:49)
[2022-08-28] MEDS ORDERED: KETAMINE HCL 500 MG/10 ML VIAL ONE (10:49)
[2022-08-28] MEDS ORDERED: DEXAMETHASONE SOD PHOSPHATE 4 MG/1 ML VIAL ONE (10:50)
[2022-08-28] MEDS ORDERED: ONDANSETRON 4 MG/2 ML VIAL ONE (10:50)
[2022-08-28] MEDS ORDERED: LACTATED RINGERS SOLUTION 1,000 ML IV SCH (11:15)
[2022-08-28 12:14] VITALS: RESP 18; TEMP 98.2
[2022-08-28 12:20] VITALS: BP 141/70; PULSE 86
== END 2022-08-28 12:15 | disposition home or self-care (01) ==
LOC: FECT 10:03
PROVIDERS: ATTEND Psychiatry & Neurology Psychiatry
PROC: GZB4ZZZ Other Electroconvulsive Therapy (ICD-10-PCS; principal; 2022-08-28 10:54)
DX: F20.9 Schizophrenia, unspecified (principal); Z88.0 Allergy status to penicillin; Z88.2 Allergy status to sulfonamides
CPT/HCPCS: 90870; 94760

== ENCOUNTER 2022-09-17 08:59 | Day surgery (SDC) | payer OTHER ==
[2022-09-17 09:52] VITALS: RESP 18; TEMP 97.9; BMI 27.4
[2022-09-17] MEDS ORDERED: KETAMINE HCL 500 MG/10 ML VIAL ONE (11:05)
[2022-09-17 12:44] VITALS: BP 140/77; PULSE 75
== END 2022-09-17 12:40 | disposition home or self-care (01) ==
LOC: FECT 08:59
PROVIDERS: ATTEND Psychiatry & Neurology Psychiatry
PROC: GZB4ZZZ Other Electroconvulsive Therapy (ICD-10-PCS; principal; 2022-09-17 11:19)
DX: F20.9 Schizophrenia, unspecified (principal)
CPT/HCPCS: 90870; 93005; 93010; 94760

== ENCOUNTER 2022-10-01 09:43 | Day surgery (SDC) | payer OTHER ==
[2022-09-18 13:12] VITALS: BMI 27.4
[2022-10-01] MEDS ORDERED: KETAMINE HCL 500 MG/10 ML VIAL ONE (11:56)
[2022-10-01 13:18] VITALS: PULSE 75; RESP 20
[2022-10-01 13:57] VITALS: BP 155/81; TEMP 96.8
== END 2022-10-01 13:40 | disposition home or self-care (01) ==
LOC: FECT 09:43
PROVIDERS: ATTEND Psychiatry & Neurology Psychiatry
PROC: GZB4ZZZ Other Electroconvulsive Therapy (ICD-10-PCS; principal; 2022-10-01 12:04)
DX: F25.9 Schizoaffective disorder, unspecified (principal)
CPT/HCPCS: 90870; 94760

== ENCOUNTER 2022-10-09 09:36 | Day surgery (SDC) | payer OTHER ==
[2022-10-07 08:21] VITALS: BMI 27.4
[2022-10-09 12:07] VITALS: RESP 16
[2022-10-09 12:36] VITALS: BP 139/72; PULSE 78; TEMP 97.7
== END 2022-10-09 12:40 | disposition home or self-care (01) ==
LOC: FECT 09:36
PROVIDERS: ATTEND Psychiatry & Neurology Psychiatry
PROC: GZB4ZZZ Other Electroconvulsive Therapy (ICD-10-PCS; principal; 2022-10-09 11:13)
DX: F20.9 Schizophrenia, unspecified (principal)
CPT/HCPCS: 90870; 94760

== ENCOUNTER 2022-10-15 10:08 | Day surgery (SDC) | payer OTHER ==
[2022-10-09 15:20] VITALS: BMI 27.4
[2022-10-15 10:48] VITALS: RESP 16
[2022-10-15] MEDS ORDERED: KETAMINE HCL 500 MG/10 ML VIAL ONE (11:08)
[2022-10-15 12:29] VITALS: TEMP 97.6
[2022-10-15 13:05] VITALS: BP 145/72; PULSE 72
== END 2022-10-15 13:05 | disposition home or self-care (01) ==
LOC: FECT 10:08
PROVIDERS: ATTEND Psychiatry & Neurology Psychiatry
PROC: GZB4ZZZ Other Electroconvulsive Therapy (ICD-10-PCS; principal; 2022-10-15 11:28)
DX: F25.9 Schizoaffective disorder, unspecified (principal)
CPT/HCPCS: 90870; 94760

== ENCOUNTER 2022-10-23 11:04 | Day surgery (SDC) | payer OTHER ==
[2022-10-16 10:21] VITALS: BMI 27.4
[2022-10-23] MEDS ORDERED: KETAMINE HCL 500 MG/10 ML VIAL ONE (12:31)
[2022-10-23 15:00] VITALS: RESP 18; TEMP 97.4
[2022-10-23 15:01] VITALS: BP 161/57; PULSE 64
== END 2022-10-23 14:10 | disposition home or self-care (01) ==
LOC: FECT 11:04
PROVIDERS: ATTEND Psychiatry & Neurology Psychiatry
PROC: GZB4ZZZ Other Electroconvulsive Therapy (ICD-10-PCS; principal; 2022-10-23 12:53)
DX: F20.9 Schizophrenia, unspecified (principal)
CPT/HCPCS: 90870; 94760

== ENCOUNTER 2022-10-30 09:01 | Day surgery (SDC) | payer OTHER ==
[2022-10-28 07:28] VITALS: BMI 27.4
[2022-10-30] MEDS ORDERED: ONDANSETRON 4 MG/2 ML VIAL ONE (11:02)
[2022-10-30] MEDS ORDERED: DEXAMETHASONE SOD PHOSPHATE 4 MG/1 ML VIAL ONE (11:02)
[2022-10-30] MEDS ORDERED: KETOROLAC TROMETHAMINE 30 MG/1 ML VIAL ONE (11:02)
[2022-10-30] MEDS ORDERED: SUCCINYLCHOLINE CHLORIDE 200 MG/10 ML SYRINGE ONE (11:03)
[2022-10-30 11:59] VITALS: RESP 18; TEMP 97.1
[2022-10-30 12:24] VITALS: BP 156/50; PULSE 68
== END 2022-10-30 12:34 | disposition home or self-care (01) ==
LOC: FECT 09:01
PROVIDERS: ATTEND Psychiatry & Neurology Psychiatry
PROC: GZB4ZZZ Other Electroconvulsive Therapy (ICD-10-PCS; principal; 2022-10-30 11:40)
DX: F20.9 Schizophrenia, unspecified (principal)
CPT/HCPCS: 90870; 94760

== ENCOUNTER 2022-11-19 09:47 | Day surgery (SDC) | payer OTHER ==
[2022-11-17 07:22] VITALS: BMI 27.4
[2022-11-19] MEDS ORDERED: KETAMINE HCL 500 MG/10 ML VIAL ONE (11:34)
[2022-11-19 13:37] VITALS: BP 142/68; PULSE 64; RESP 20; TEMP 97.4
== END 2022-11-19 13:10 | disposition home or self-care (01) ==
LOC: FECT 09:47
PROVIDERS: ATTEND Psychiatry & Neurology Psychiatry
PROC: GZB4ZZZ Other Electroconvulsive Therapy (ICD-10-PCS; principal; 2022-11-19 11:51)
DX: F25.9 Schizoaffective disorder, unspecified (principal)
CPT/HCPCS: 90870; 94760

== ENCOUNTER 2022-12-11 09:55 | Day surgery (SDC) | payer OTHER ==
[2022-11-24 17:32] VITALS: BMI 27.4
[2022-12-11] MEDS ORDERED: KETAMINE HCL 500 MG/10 ML VIAL ONE (11:01)
[2022-12-11] MEDS ORDERED: SUCCINYLCHOLINE CHLORIDE 200 MG/10 ML SYRINGE ONE (11:09)
[2022-12-11 12:01] VITALS: RESP 16
[2022-12-11 12:27] VITALS: TEMP 98.1
[2022-12-11 12:28] VITALS: BP 156/71; PULSE 76
== END 2022-12-11 12:29 | disposition home or self-care (01) ==
LOC: FECT 09:55
PROVIDERS: ATTEND Psychiatry & Neurology Psychiatry
PROC: GZB4ZZZ Other Electroconvulsive Therapy (ICD-10-PCS; principal; 2022-12-11 11:12)
DX: F20.9 Schizophrenia, unspecified (principal)
CPT/HCPCS: 90870; 94760

== ENCOUNTER 2022-12-25 09:23 | Day surgery (SDC) | payer OTHER ==
[2022-12-22 11:39] VITALS: BMI 27.4
[2022-12-25] MEDS ORDERED: KETAMINE HCL 500 MG/10 ML VIAL ONE (11:30)
[2022-12-25 13:16] VITALS: BP 154/69; PULSE 70; RESP 18; TEMP 97.1
== END 2022-12-25 12:45 | disposition home or self-care (01) ==
LOC: FECT 09:23
PROVIDERS: ATTEND Student in an Organized Health Care Education/Training Program
PROC: GZB4ZZZ Other Electroconvulsive Therapy (ICD-10-PCS; principal; 2022-12-25 11:41)
DX: F20.9 Schizophrenia, unspecified (principal)
CPT/HCPCS: 90870; 94760

== ENCOUNTER → 2023-01-01 | Day surgery (SDC) | payer OTHER ==
[2022-12-30 15:28] VITALS: BMI 27.4
[~2023-01-01] MED LIST changes: +KETAMINE HCL 500 MG/10 ML VIAL ONE; -LACTATED RINGERS SOLUTION 1,000 ML IV SCH
[2023-01-01 13:27] VITALS: BP 165/67; PULSE 71; RESP 16; TEMP 98.6
== END | disposition home or self-care (01) ==
LOC: FECT 10:41
PROVIDERS: ATTEND Student in an Organized Health Care Education/Training Program
PROC: GZB4ZZZ Other Electroconvulsive Therapy (ICD-10-PCS; principal; 2023-01-01 12:27)
DX: F20.9 Schizophrenia, unspecified (principal)
CPT/HCPCS: 90870; 94760

== ENCOUNTER 2023-01-05 10:18 | Day surgery (SDC) | payer OTHER ==
[2023-01-01 13:55] VITALS: BMI 27.4
[2023-01-05] MEDS ORDERED: KETAMINE HCL 500 MG/10 ML VIAL ONE (11:44)
[2023-01-05] MEDS ORDERED: PROPOFOL 20 ML ONE (11:44)
[2023-01-05] MEDS ORDERED: ONDANSETRON 4 MG/2 ML VIAL ONE (11:45)
[2023-01-05] MEDS ORDERED: KETOROLAC TROMETHAMINE 30 MG/1 ML VIAL ONE (11:45)
[2023-01-05] MEDS ORDERED: SUCCINYLCHOLINE CHLORIDE 200 MG/10 ML SYRINGE ONE (11:47)
[2023-01-05] MEDS ORDERED: LIDOCAINE HCL/PF 2% SDV 5ML VIAL ONE (11:48)
[2023-01-05 12:49] VITALS: BP 163/55; PULSE 74; RESP 19; TEMP 98
== END 2023-01-05 13:00 | disposition home or self-care (01) ==
LOC: FECT 10:18
PROVIDERS: ATTEND Student in an Organized Health Care Education/Training Program
PROC: GZB4ZZZ Other Electroconvulsive Therapy (ICD-10-PCS; principal; 2023-01-05 11:51)
DX: F25.1 Schizoaffective disorder, depressive type (principal)
CPT/HCPCS: 90870; 94760

== ENCOUNTER 2023-01-14 08:16 | Day surgery (SDC) | payer OTHER ==
[2023-01-14 08:40] VITALS: BMI 27.4
[2023-01-14] MEDS ORDERED: KETAMINE HCL 100 MG/ML - 5ML VIAL ONE (09:30)
[2023-01-14 11:44] VITALS: BP 154/79; PULSE 82; RESP 18; TEMP 98.5
== END 2023-01-14 11:40 | disposition home or self-care (01) ==
LOC: FECT 08:16
PROVIDERS: ATTEND Student in an Organized Health Care Education/Training Program
PROC: GZB4ZZZ Other Electroconvulsive Therapy (ICD-10-PCS; principal; 2023-01-14 10:10)
DX: F25.9 Schizoaffective disorder, unspecified (principal)
CPT/HCPCS: 90870; 94760

== ENCOUNTER 2023-01-21 11:27 | Day surgery (SDC) | payer OTHER ==
[2023-01-15 14:30] VITALS: BMI 27.4
[2023-01-21] MEDS ORDERED: KETAMINE HCL 100 MG/ML - 5ML VIAL ONE (13:07)
[2023-01-21 14:20] VITALS: RESP 16
[2023-01-21 15:03] VITALS: BP 160/62; PULSE 64; TEMP 97.5
== END 2023-01-21 14:50 | disposition home or self-care (01) ==
LOC: FECT 11:27
PROVIDERS: ATTEND Student in an Organized Health Care Education/Training Program
PROC: GZB4ZZZ Other Electroconvulsive Therapy (ICD-10-PCS; principal; 2023-01-21 13:20)
DX: F25.1 Schizoaffective disorder, depressive type (principal)
CPT/HCPCS: 90870; 94760

== ENCOUNTER 2023-01-28 09:41 | Day surgery (SDC) | payer OTHER ==
[2023-01-25 09:27] VITALS: BMI 27.1
[2023-01-28] MEDS ORDERED: KETAMINE HCL 100 MG/ML - 5ML VIAL ONE (11:30)
[2023-01-28 12:44] VITALS: RESP 19; TEMP 97.9
[2023-01-28 13:06] VITALS: BP 160/65; PULSE 70
== END 2023-01-28 13:05 | disposition home or self-care (01) ==
LOC: FECT 09:41
PROVIDERS: ATTEND Student in an Organized Health Care Education/Training Program
PROC: GZB4ZZZ Other Electroconvulsive Therapy (ICD-10-PCS; principal; 2023-01-28 11:41)
DX: F25.1 Schizoaffective disorder, depressive type (principal)
CPT/HCPCS: 90870; 94760

== ENCOUNTER 2023-02-04 10:38 | Day surgery (SDC) | payer OTHER ==
[2023-01-29 12:04] VITALS: BMI 27.1
[2023-02-04 11:04] VITALS: RESP 16
[2023-02-04] MEDS ORDERED: DEXAMETHASONE SOD PHOSPHATE 4 MG/1 ML VIAL ONE (12:03)
[2023-02-04] MEDS ORDERED: KETAMINE HCL 100 MG/ML - 5ML VIAL ONE ×2 (12:03→12:04)
[2023-02-04] MEDS ORDERED: ONDANSETRON 4 MG/2 ML VIAL ONE (12:03)
[2023-02-04] MEDS ORDERED: KETOROLAC TROMETHAMINE 30 MG/1 ML VIAL ONE (12:03)
[2023-02-04] MEDS ORDERED: SUCCINYLCHOLINE CHLORIDE 200 MG/10 ML SYRINGE ONE (12:22)
[2023-02-04 12:50] VITALS: TEMP 97.8
[2023-02-04 13:33] VITALS: BP 156/76; PULSE 79
== END 2023-02-04 13:50 | disposition home or self-care (01) ==
LOC: FECT 10:38
PROVIDERS: ATTEND Student in an Organized Health Care Education/Training Program
PROC: GZB4ZZZ Other Electroconvulsive Therapy (ICD-10-PCS; principal; 2023-02-04 12:25)
DX: F25.1 Schizoaffective disorder, depressive type (principal)
CPT/HCPCS: 90870; 94760

== ENCOUNTER 2023-02-11 08:52 | Day surgery (SDC) | payer OTHER ==
[~2023-02-11 08:52] MED LIST changes: -KETAMINE HCL 500 MG/10 ML VIAL ONE; +LACTATED RINGERS SOLUTION 1,000 ML IV SCH; +ONDANSETRON 4 MG/2 ML VIAL IVPUSH PRN
[2023-02-11 09:19] VITALS: BMI 27.1
[2023-02-11] MEDS ORDERED: KETAMINE HCL 100 MG/ML - 5ML VIAL ONE (10:38)
[2023-02-11 11:13] VITALS: TEMP 97.2
[2023-02-11 12:23] VITALS: RESP 18
[2023-02-11 12:26] VITALS: BP 141/61; PULSE 76
== END 2023-02-11 12:05 | disposition home or self-care (01) ==
LOC: FECT 08:52
PROVIDERS: ATTEND Student in an Organized Health Care Education/Training Program
PROC: GZB4ZZZ Other Electroconvulsive Therapy (ICD-10-PCS; principal; 2023-02-11 10:50)
DX: F25.9 Schizoaffective disorder, unspecified (principal)
CPT/HCPCS: 90870; 94760

== ENCOUNTER 2023-02-18 10:21 | Day surgery (SDC) | payer OTHER ==
[2023-02-11 14:12] VITALS: BMI 27.1
[2023-02-18] MEDS ORDERED: KETAMINE HCL 100 MG/ML - 5ML VIAL ONE (11:40)
[2023-02-18 12:26] VITALS: TEMP 98.4
[2023-02-18 13:05] VITALS: RESP 18
[2023-02-18 13:21] VITALS: BP 149/79; PULSE 66
== END 2023-02-18 13:30 | disposition home or self-care (01) ==
LOC: FECT 10:21
PROVIDERS: ATTEND Student in an Organized Health Care Education/Training Program
PROC: GZB4ZZZ Other Electroconvulsive Therapy (ICD-10-PCS; principal; 2023-02-18 12:04)
DX: F25.1 Schizoaffective disorder, depressive type (principal)
CPT/HCPCS: 90870; 94760

== ENCOUNTER 2023-03-04 08:40 | Day surgery (SDC) | payer OTHER ==
[2023-02-22 13:24] VITALS: BMI 27.1
[2023-03-04 09:38] LABS: HEMATOCRIT 36.5 % (32.4-45.2); HEMOGLOBIN 11.8 G/dL (10.7-15.3); MCH 30.5 pg (25.7-33.7); MCHC 32.2 g/dl (32.0-36.0); MEAN CELL VOLUME 94.8 fl (80-96); PLATELET COUNT 174.4 10^3/uL (134-434); RBC 3.85 10^6/uL (3.60-5.2); WHITE BLOOD COUNT 6.2 10^3/uL (4.0-10.8)
[2023-03-04 10:02] LABS: ALBUMIN 3.5 g/dl (3.4-5.0); BILIRUBIN,TOTAL 0.6 mg/dl (0.2-1); CALCIUM 8.5 mg/dl (8.5-10.1); CREATININE 0.6 mg/dl (0.6-1.3); TOT PROT 5.9 g/dl (6.4-8.2)
== END 2023-03-04 09:43 | disposition home or self-care (01) ==
LOC: FECT 08:40
PROVIDERS: ATTEND Student in an Organized Health Care Education/Training Program
PROC: GZB4ZZZ Other Electroconvulsive Therapy (ICD-10-PCS; principal; 2023-03-04)
DX: Z53.09 Procedure and treatment not carried out because of other contraindication (principal); F25.1 Schizoaffective disorder, depressive type
CPT/HCPCS: 36415; 80053; 85027

== ENCOUNTER 2023-03-11 10:06 | Day surgery (SDC) | payer OTHER ==
[2023-03-11] MEDS ORDERED: KETAMINE HCL 100 MG/ML - 5ML VIAL ONE (11:25)
[2023-03-11 14:22] VITALS: BP 141/64; PULSE 68; RESP 18; TEMP 98; BMI 25.7
== END 2023-03-11 13:20 | disposition home or self-care (01) ==
LOC: FECT 10:06
PROVIDERS: ATTEND Student in an Organized Health Care Education/Training Program
PROC: GZB4ZZZ Other Electroconvulsive Therapy (ICD-10-PCS; principal; 2023-03-11 11:45)
DX: F25.9 Schizoaffective disorder, unspecified (principal)
CPT/HCPCS: 90870; 94760

== ENCOUNTER 2023-03-25 08:35 | Day surgery (SDC) | payer OTHER ==
[2023-03-17 14:59] VITALS: BMI 25.7
[2023-03-25] MEDS ORDERED: KETAMINE HCL 100 MG/ML - 5ML VIAL ONE (10:47)
[2023-03-25] MEDS ORDERED: PROPOFOL 20 ML ONE (10:50)
[2023-03-25] MEDS ORDERED: SUCCINYLCHOLINE CHLORIDE 200 MG/10 ML SYRINGE ONE (11:07)
[2023-03-25] MEDS ORDERED: ONDANSETRON 4 MG/2 ML VIAL ONE (11:23)
[2023-03-25] MEDS ORDERED: KETOROLAC TROMETHAMINE 30 MG/1 ML VIAL ONE (11:23)
[2023-03-25] MEDS ORDERED: DEXAMETHASONE SOD PHOSPHATE 4 MG/1 ML VIAL ONE (11:23)
[2023-03-25 12:20] VITALS: TEMP 98
[2023-03-25 12:29] VITALS: RESP 18
[2023-03-25 12:31] VITALS: BP 140/60; PULSE 72
== END 2023-03-25 12:40 | disposition home or self-care (01) ==
LOC: FECT 08:35
PROVIDERS: ATTEND Student in an Organized Health Care Education/Training Program
PROC: GZB4ZZZ Other Electroconvulsive Therapy (ICD-10-PCS; principal; 2023-03-25 11:11)
DX: F20.9 Schizophrenia, unspecified (principal)
CPT/HCPCS: 90870; 93005; 93010; 94760

== ENCOUNTER 2023-04-08 09:33 | Day surgery (SDC) | payer OTHER ==
[2023-03-31 14:50] VITALS: BMI 25.7
[2023-04-08] MEDS ORDERED: KETAMINE HCL 100 MG/ML - 5ML VIAL ONE (10:42)
[2023-04-08 12:10] VITALS: BP 172/82; PULSE 108; RESP 16; TEMP 98
== END 2023-04-08 12:30 | disposition home or self-care (01) ==
LOC: FECT 09:33
PROVIDERS: ATTEND Student in an Organized Health Care Education/Training Program
PROC: GZB4ZZZ Other Electroconvulsive Therapy (ICD-10-PCS; principal; 2023-04-08 11:26)
DX: F25.9 Schizoaffective disorder, unspecified (principal)
CPT/HCPCS: 90870; 94760

== ENCOUNTER 2023-04-22 08:43 | Day surgery (SDC) | payer OTHER ==
[2023-04-22 09:13] VITALS: BMI 25.7
[2023-04-22] MEDS ORDERED: KETAMINE HCL 100 MG/ML - 5ML VIAL ONE (10:06)
[2023-04-22 11:45] VITALS: RESP 20
[2023-04-22 12:13] VITALS: BP 145/75; PULSE 80; TEMP 976.8
== END 2023-04-22 12:00 | disposition home or self-care (01) ==
LOC: FECT 08:43
PROVIDERS: ATTEND Student in an Organized Health Care Education/Training Program
PROC: GZB4ZZZ Other Electroconvulsive Therapy (ICD-10-PCS; principal; 2023-04-22 10:31)
DX: F25.9 Schizoaffective disorder, unspecified (principal)
CPT/HCPCS: 90870; 94760

== ENCOUNTER 2023-05-06 08:23 | Day surgery (SDC) | payer OTHER ==
[2023-05-06 08:54] VITALS: BMI 25.7
[2023-05-06] MEDS ORDERED: KETAMINE HCL 100 MG/ML - 5ML VIAL ONE (09:13)
[2023-05-06 10:44] VITALS: RESP 18
[2023-05-06 10:54] VITALS: BP 165/65; PULSE 75; TEMP 97.9
== END 2023-05-06 10:55 | disposition home or self-care (01) ==
LOC: FECT 08:23
PROVIDERS: ATTEND Student in an Organized Health Care Education/Training Program
PROC: GZB4ZZZ Other Electroconvulsive Therapy (ICD-10-PCS; principal; 2023-05-06 09:45)
DX: F25.9 Schizoaffective disorder, unspecified (principal)
CPT/HCPCS: 90870; 94760

== ENCOUNTER 2023-05-20 08:44 | Day surgery (SDC) | payer OTHER ==
[2023-05-13 14:27] VITALS: BMI 25.7
[2023-05-20] MEDS ORDERED: KETAMINE HCL 100 MG/ML - 5ML VIAL ONE (09:57)
[2023-05-20 11:03] VITALS: RESP 18; TEMP 97.8
[2023-05-20 11:21] VITALS: BP 168/78; PULSE 74
== END 2023-05-20 11:25 | disposition home or self-care (01) ==
LOC: FECT 08:44
PROVIDERS: ATTEND Student in an Organized Health Care Education/Training Program
PROC: GZB4ZZZ Other Electroconvulsive Therapy (ICD-10-PCS; principal; 2023-05-20 10:16)
DX: F25.9 Schizoaffective disorder, unspecified (principal)
CPT/HCPCS: 90870; 94760

== ENCOUNTER 2023-06-03 10:00 | Day surgery (SDC) | payer OTHER ==
[2023-05-28 17:13] VITALS: BMI 25.7
[2023-06-03] MEDS ORDERED: KETAMINE HCL 100 MG/ML - 5ML VIAL ONE (12:11)
[2023-06-03] MEDS ORDERED: METOPROLOL TARTRATE 5 MG/5 ML VIAL ONE (12:29)
[2023-06-03 13:14] VITALS: PULSE 64; TEMP 97.2
[2023-06-03 13:35] VITALS: BP 148/74; RESP 18
== END 2023-06-03 13:30 | disposition home or self-care (01) ==
LOC: FECT 10:00
PROVIDERS: ATTEND Psychiatry & Neurology Psychiatry
PROC: GZB4ZZZ Other Electroconvulsive Therapy (ICD-10-PCS; principal; 2023-06-03 12:23)
DX: F25.9 Schizoaffective disorder, unspecified (principal)
CPT/HCPCS: 90870; 94760

== ENCOUNTER 2023-06-17 09:59 | Day surgery (SDC) | payer OTHER ==
[2023-06-10 12:06] VITALS: BMI 25.7
[2023-06-17] MEDS ORDERED: KETAMINE HCL 100 MG/ML - 5ML VIAL ONE (11:37)
[2023-06-17 12:49] VITALS: PULSE 78; TEMP 97.7
[2023-06-17 14:36] VITALS: BP 176/77; RESP 18
== END 2023-06-17 13:10 | disposition home or self-care (01) ==
LOC: FECT 09:59
PROVIDERS: ATTEND Student in an Organized Health Care Education/Training Program
PROC: GZB4ZZZ Other Electroconvulsive Therapy (ICD-10-PCS; principal; 2023-06-17 11:54)
DX: F25.9 Schizoaffective disorder, unspecified (principal)
CPT/HCPCS: 90870; 94760

== ENCOUNTER 2023-07-20 11:15 | Day surgery (SDC) | payer OTHER ==
[2023-07-15 13:33] VITALS: BMI 25.7
[2023-07-20 11:39] VITALS: TEMP 97.7
[2023-07-20] MEDS ORDERED: KETAMINE HCL 100 MG/ML - 5ML VIAL ONE (12:39)
[2023-07-20 13:28] VITALS: BP 177/88; PULSE 72; RESP 20
== END 2023-07-20 13:45 | disposition home or self-care (01) ==
LOC: FECT 11:15
PROVIDERS: ATTEND Student in an Organized Health Care Education/Training Program
PROC: GZB4ZZZ Other Electroconvulsive Therapy (ICD-10-PCS; principal; 2023-07-20)
DX: F25.9 Schizoaffective disorder, unspecified (principal); Z53.8 Procedure and treatment not carried out for other reasons

== ENCOUNTER 2023-08-26 08:03 | Day surgery (SDC) | payer OTHER ==
[2023-08-25 11:51] VITALS: BMI 25.7
[2023-08-26 10:10] LABS: ALBUMIN 3.9 g/dl (3.4-5.0); BILIRUBIN,TOTAL 0.6 mg/dl (0.2-1); CREATININE 0.7 mg/dl (0.6-1.3); TOT PROT 6.7 g/dl (6.4-8.2)
[2023-08-26 12:24] LABS: BASO % 0.6 % (0-2.0); EOS % 1.9 % (0-4.5); HEMATOCRIT 37.6 % (32.4-45.2); HEMOGLOBIN 12.5 GM/dL (10.7-15.3); LYMPH % 24.3 % (8-40); MCH 31.7 pg (25.7-33.7); MCHC 33.3 g/dl (32.0-36.0); MEAN CELL VOLUME 94.9 fl (80-96); MEAN PLT VOLUME 9.4 fl (7.5-11.1); MONO % 17.7 % (3.8-10.2); NEUT % 55.5 % (42.8-82.8); PLATELET COUNT 183 10^3/uL (134-434); RBC 3.96 M/mm3 (3.60-5.2); RDW 15.8 % (11.6-15.6); WHITE BLOOD COUNT 6.5 K/mm3 (4.0-10.0)
[2023-08-26 13:06] VITALS: RESP 16; TEMP 97.1
[2023-08-26 13:11] VITALS: BP 135/58; PULSE 68
== END 2023-08-26 13:10 | disposition home or self-care (01) ==
LOC: FECT 08:03
PROVIDERS: ATTEND Student in an Organized Health Care Education/Training Program
PROC: GZB4ZZZ Other Electroconvulsive Therapy (ICD-10-PCS; principal; 2023-08-26 11:54)
DX: F25.9 Schizoaffective disorder, unspecified (principal)
CPT/HCPCS: 36415; 80053; 85025; 90870; 94760